=== PATIENT | male | born 1980 | race Two or more races ===

== ENCOUNTER 2022-01-03 11:08 | Emergency (ER) | payer BC, SELFPAY ==
[2022-01-03 11:14] VITALS: BP 119/84; PULSE 79; RESP 14; TEMP 37.1; O2SAT 98; BMI 26.4
--- NOTE | 2022-01-03 11:30 | ED.ALLEREA ---
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 No skin rash, vomiting, diarrhea, abdominal cramping, wheezing, coughing, difficulty breathing or swallowing Related Data Allergies Allergy/AdvReac Type Severity Reaction Status Date / Time bee pollen [bee stings] Allergy Swelling Verified 01/03/22 11:16 Review of Systems Review of Systems: Yes all other systems are reviewed and are negative Constitutional: Constitutional: Reports no additional constitutional complaints, Denies body ache(s), Denies chills, Denies fever(s), Denies headache(s) and Denies weakness Eyes: Eyes: Reports no additional eye complaints and Denies change in vision ENT: Reports system reviewed and no additional complaints, except as documented, Denies dizziness, Denies headache(s), Denies nasal congestion, Denies nasal discharge, Denies neck pain and Reports throat swelling Cardiovascular: Cardiovascular: Reports no additional cardiovascular complaints, Denies chest pain, Denies leg edema and Denies dyspnea Respiratory: Respiratory: Reports no additional respiratory complaints, Denies cough and Denies dyspnea Gastrointestinal: Gastrointestinal: Reports no additional gastrointestinal complaints, Denies abdominal pain, Denies diarrhea, Denies nausea and Denies vomiting Genitourinary: Genitourinary: Denies urinary incontinence Musculoskeletal: Musculoskeletal: Reports no additional musculoskeletal complaints, Denies back pain, Denies arthralgias, Denies joint swelling, Denies neck pain, Denies numbness and Denies tingling Integumentary/Breasts: Skin/Breast: Reports system reviewed and no additional complaints, except as docu and Denies rash Neurologic: Reports system reviewed and no additional complaints, except as documented, Denies dizziness, Denies headache(s), Denies numbness, Denies tingling and Denies weakness Allergic/Immunologic: Allergic/Immunologic: Reports throat swelling PMFSH Past Medical History Attestation statement: The following information was validated with the patient. Source: old records reviewed and nursing notes reviewed Social History Social History Advance Directives: No Physical Exam ED Vital Signs: Vital Signs - 24 hr 01/03/22 11:14 01/03/22 12:57 Temperature 98.8 F Pulse Rate 79 58 Respiratory Rate 14 13 Blood Pressure 119/84 114/72 Pulse Oximetry 98 99 Oxygen Delivery Method Room Air Room Air BMI result Body Mass Index 26.4 Const General: cooperative, healthy appearing, comfortable and no acute distress Orientation/consciousness: patient oriented x3 Limitations: no limitations HENMT Other: No stridor Head: Yes normal to inspection Ears: hearing grossly normal bilaterally and TM's normal bilaterally General nose exam: Normal external nose present Face and sinus: Yes normal facial exam Mouth: Normal oral and palatal mucosa present, lip normal and tongue normal Throat: Yes posterior oropharynx normal, Yes tonsils normal and Yes uvula midline Eyes General: appearance normal, both eyes and all related structures Pupils: Equal, round and reactive pupils present Neck Neck: Yes normal visual inspection, Yes full ROM, Yes no lymphadenopathy and Yes no meningeal signs Chest Chest palpation & inspection: normal inspection of the chest Resp Effort & Inspection: normal respiratory effort Auscultation: clear to auscultation bilaterally Cardio Rate: regular rate Rhythm: regular rhythm Peripheral pulses: Peripheral pulses 2+ throughout GI Inspection: Yes normal to inspection Palpation (GI): Soft to palpation and nontender Skin General skin exam: no rashes or lesions noted Neuro General: patient oriented x3, moves all extremities and no meningeal signs Cranial nerves: Yes Equal, round and reactive pupils present Cognition (Neuro): normal cognition Gait exam (Neuro): Normal gait present Course Course Course Narrative: Patient monitor for over 2 hours with no change in symptoms. Sounds like a mild allergic reaction. It does not sound like anaphylaxis. I do not think the patient needs EpiPen. He can take Benadryl as needed Reviewed worrisome signs and symptoms of when to return to the emergency room. Comfortable discharge home. MDM - Allergic Reaction MDM Narrative Medical decision making narrative: 41-year-old male here with throat itching and tightness after swallowing a bee that within a soda can 50 minutes prior to arrival. Patient has previous history of allergic reaction to bees but does not sound like anaphylaxis. Airway is open. No angioedema. Lungs are clear. No stridor. Vitals are stable. At this time no need for epinephrine will give benadryl, solumedrol, famotidine and monitor Medical Records Attestation: I reviewed the patient's medical records. Lab Data Attestation: I reviewed the patient's lab results. Discharge Plan Discharge Clinical Impression: Allergic reaction Patient Disposition: Home, Self-Care Instructions: General Allergic Reaction (ED) Additional Instructions: Take benadryl as needed Return for worsening symptoms Referrals: Physician,Roderick J [Primary Care Provider] -
[2022-01-03] MEDS: diphenhydrAMINE HCL 50 MG/ML VIAL IVPUSH (11:38)
[2022-01-03] MEDS: Famotidine/PF 20 MG/2 ML VIAL IVPUSH (11:38)
[2022-01-03] MEDS: methylPREDNISolone Sod Succ 125 MG/2 ML VIAL IVPUSH (11:38)
[2022-01-03 12:57] VITALS: BP 114/72; PULSE 58; RESP 13; O2SAT 99
== END 2022-01-03 13:34 | disposition home or self-care (01) ==
PROVIDERS: Emergency Provider Emergency Medicine
DX: T63.441A Toxic effect of venom of bees, accidental (unintentional), initial encounter (principal); Y92.9 Unspecified place or not applicable
CPT/HCPCS: 96374; 96375; 99283; 99284; J1200; J2930